=== PATIENT | male | born 1975 | race Caucasian/White ===

== ENCOUNTER 2019-04-27 09:41 | Emergency (ER) | payer OTHER ==
[~2019-04-27] VITALS: Ht 175.3 cm; Wt 81.6 kg
[2019-04-27 09:48] VITALS: Ht 175.3 cm; Wt 81.6 kg
[2019-04-27 12:08] VITALS: BP 148/88
== END 2019-04-27 12:08 | disposition home or self-care (01) ==
LOC: ED 09:41
DX: S62.334A Displaced fracture of neck of fourth metacarpal bone, right hand, initial encounter for closed fracture (principal); S60.416A Abrasion of right little finger, initial encounter; Y04.0XXA Assault by unarmed brawl or fight, initial encounter; Y93.89 Activity, other specified; Y92.89 Other specified places as the place of occurrence of the external cause; Y99.8 Other external cause status
CPT/HCPCS: 90715

== ENCOUNTER 2019-04-30 11:19 | Emergency (ER) | payer OTHER ==
[~2019-04-30] VITALS: Ht 175.3 cm; Wt 78.0 kg
[2019-04-30 12:06] VITALS: BP 144/82; Ht 175.3 cm; Wt 78.0 kg
== END 2019-04-30 12:50 | disposition left against medical advice (07) ==
LOC: ED 11:19
DX: Z53.21 Procedure and treatment not carried out due to patient leaving prior to being seen by health care provider (principal)

== ENCOUNTER 2020-06-10 19:29 | Emergency (ER) | payer OTHER ==
[~2020-06-10] VITALS: Ht 175.3 cm; Wt 77.1 kg
[2020-06-10 19:37] VITALS: Ht 175.3 cm; Wt 77.1 kg
[2020-06-10 20:38] VITALS: BP 150/98
== END 2020-06-10 20:38 | disposition left against medical advice (07) ==
LOC: ED 19:29
DX: R41.0 Disorientation, unspecified (principal)
CPT/HCPCS: G0480; J7030